=== PATIENT | female | born 1990 | race Caucasian/White ===

== ENCOUNTER 2017-01-11 19:34 | Emergency (ER) | payer OTHER ==
[~2017-01-11] VITALS: Ht 157.5 cm; Wt 66.1 kg
[2017-01-11 19:43] VITALS: BP 147/68; PULSE 95; RESP 18; TEMP 97.7; O2SAT 97
[2017-01-11] MEDS ORDERED: LORA-392 PO (20:00)
[2017-01-11] MEDS ORDERED: FLUO60TA PO (20:00)
[2017-01-11] MEDS ORDERED: birth control PO (20:00)
[2017-01-11] MEDS ORDERED: SODIUM CHLOR 0.9% 1000 ML INJ 1,000 ML IV SCH (20:10)
[2017-01-11] MEDS ORDERED: SODIUM CHLORIDE 0.9% FLUSH 10 ML FLUSH IV FLUSH PRN (20:15)
--- NOTE | 2017-01-11 20:15 | PD ---
HPI Chief Complaint: GI Complaint Time Seen by Provider: 20:10 Travel History International Travel<30 days: No Contact w/Intl Traveler<30days: No Traveled to known affect area: No History of Present Illness HPI 26-year-old female presents to the emergency department by private transportation for complaint of 3 days of nausea vomiting diarrhea and one day of abdominal pain generalized primarily epigastric and right flank. Patient denies fever chills. No recent respiratory illness symptoms no sinus pressure drainage sore throat earache cough congestion chest pain or shortness of breath. Patient denies dysuria frequency urgency or hematuria. Patient just completed her normal menses 2 days ago. Patient states that she does take control pills and her cycle is well regulated. Patient denies any dietary indiscretion well water ingestion or foreign travel. Patient is currently on a clinical and is exposed to patients at [facility] [place] [facility]. Patient says no known exposure to GI bug; reportedly no one else with similar symptoms. Emesis has been stomach contents no bilious emesis no coffee-ground emesis no hematemesis also no melanoma hematochezia. Pain at worst is 8/10 in intensity presently discomfort as 3/10 in intensity. Patient reports her discomfort as intermittent colicky nature. Patient denies any personal history family history of inflammatory bowel disease Crohn's ulcer colitis and has not had similar symptoms in the past. Patient denies . Patient is unable to identify exacerbating or alleviating factors. [facility] Past Medical History Narrative Medical Anxiety depression; no surgery; no tobacco use; nursing notes reviewed Anxiety: Yes Depression: Yes Immunizations Current: Yes (UTD per pt ) Tetanus Vaccination: Unknown Influenza Vaccination: Yes ?: Not LMP: 01/05/17 Past Surgical History Surgical History: No Previous Surgery Social History Alcohol Use: No Tobacco Use: No Substance Use: No Allergies-Medications (Allergen,Severity, Reaction): Coded Allergies: Penicillins (Verified Allergy, Severe, Swelling, 01/11/17) azithromycin (Verified Allergy, Severe, Swelling, 01/11/17) erythromycin base (Verified Allergy, Severe, Swelling, 01/11/17) Reported Meds & Prescriptions Reported Meds & Active Scripts Active Reported [ control ] PO DAILY Ativan (Lorazepam) 0.5 Mg Tab 0.25 Mg PO DAILY PRN Fluoxetine (Fluoxetine HCl) 60 Mg Tab 100 Mg PO DAILY Review of Systems Except as stated in HPI: all other systems reviewed are Neg General / Constitutional: No: Fever, Chills HENT: No: Congestion Cardiovascular: No: Chest Pain or Discomfort Respiratory: No: Shortness of Breath Gastrointestinal: Positive: Nausea, Vomiting, Diarrhea, Abdominal Pain Genitourinary: Positive: Flank Pain, No: Dysuria, Vaginal Bleeding Musculoskeletal: No: Myalgias, Arthralgias Skin: No Rash Neurologic: No: Weakness, Dizziness, Syncope Psychiatric: No: Anxiety Hematologic/Lymphatic: No: Lymph Node Enlargement Physical Exam Narrative GENERAL: Well-developed well-nourished female in no acute distress no respiratory distress SKIN: Warm and dry. HEAD: Normocephalic. EYES: No scleral icterus. No injection or drainage. NECK: Supple, trachea midline. No JVD or lymphadenopathy. CARDIOVASCULAR: Regular rate and rhythm without murmurs, gallops, or rubs. RESPIRATORY: Breath sounds equal bilaterally. No accessory muscle use. GASTROINTESTINAL: Abdomen soft, non-tender, nondistended. No guarding no rebound. MUSCULOSKELETAL: No cyanosis, or edema. BACK: Nontender without obvious deformity. No CVA tenderness. Data Data Last Documented VS Vital Signs Date Time Temp Pulse Resp B/P (MAP) Pulse Ox O2 Delivery O2 Flow Rate FiO2 01/11/17 19:43 97.7 95 18 147/68 (94) 97 Orders Orders Complete Blood Count With Diff (01/11/17 20:10) Comprehensive Metabolic Panel (01/11/17 20:10) Lipase (01/11/17 20:10) Urinalysis - C+S If Indicated (01/11/17 20:10) Iv Access Insert/Monitor (01/11/17 20:10) Ecg Monitoring (01/11/17 20:10) Oximetry (01/11/17 20:10) Sodium Chlor 0.9% 1000 Ml Inj (Ns 1000 M (01/11/17 20:10) Sodium Chloride 0.9% Flush (Ns Flush) (01/11/17 20:15) Ed Urine Pregnancytest Poc (01/11/17 20:10) Ct Abd/Pel W/O Iv Contrast (01/11/17 ) Ketorolac Inj (Toradol Inj) (01/11/17 21:00) Labs Laboratory Tests Test 01/11/17 20:28 White Blood Count 7.4 TH/MM3 Red Blood Count 4.64 MIL/MM3 Hemoglobin 13.9 GM/DL Hematocrit 41.1 % Mean Corpuscular Volume 88.7 FL Mean Corpuscular Hemoglobin 30.0 PG Mean Corpuscular Hemoglobin Concent 33.9 % Red Cell Distribution Width 11.7 % Platelet Count 246 TH/MM3 Mean Platelet Volume 8.9 FL Neutrophils (%) (Auto) 68.8 % Lymphocytes (%) (Auto) 21.2 % Monocytes (%) (Auto) 7.5 % Eosinophils (%) (Auto) 1.7 % Basophils (%) (Auto) 0.8 % Neutrophils # (Auto) 5.0 TH/MM3 Lymphocytes # (Auto) 1.6 TH/MM3 Monocytes # (Auto) 0.6 TH/MM3 Eosinophils # (Auto) 0.1 TH/MM3 Basophils # (Auto) 0.1 TH/MM3 CBC Comment DIFF FINAL Differential Comment Urine Color YELLOW Urine Turbidity CLEAR Urine pH 7.0 Urine Specific [place] 1.015 Urine Protein NEG mg/dL Urine Glucose (UA) NEG mg/dL Urine Ketones NEG mg/dL Urine Occult Blood SMALL Urine Nitrite NEG Urine Bilirubin NEG Urine Leukocyte Esterase NEG Urine RBC 0-3 /hpf Urine WBC 3-5 /hpf Urine Squamous Epithelial Cells 6-8 /hpf Urine Hyaline Casts INNUM /lpf Microscopic Urinalysis Comment CULT NOT INDICATED Blood Urea Nitrogen 8 MG/DL Creatinine 0.78 MG/DL Random Glucose 99 MG/DL Total Protein 7.6 GM/DL Albumin 3.8 GM/DL Calcium Level 9.6 MG/DL Alkaline Phosphatase 85 U/L Aspartate Amino Transf (AST/SGOT) 16 U/L Alanine Aminotransferase (ALT/SGPT) 28 U/L Total Bilirubin 0.3 MG/DL Sodium Level 141 MEQ/L Potassium Level 3.4 MEQ/L Chloride Level 104 MEQ/L Carbon Dioxide Level 27.2 MEQ/L Anion Gap 10 MEQ/L Estimat Glomerular Filtration Rate 90 ML/MIN Lipase 123 U/L MDM Medical Decision Making Medical Screen Exam Complete: Yes Emergency Medical Condition: Yes Medical Record Reviewed: Yes Interpretation(s) POC HCG: Negative Vital Signs Date Time Temp Pulse Resp B/P (MAP) Pulse Ox O2 Delivery O2 Flow Rate FiO2 01/11/17 19:43 97.7 95 18 147/68 (94) 97 CBC & BMP Diagram 01/11/17 20:28 Total Protein 7.6, Albumin 3.8, Calcium Level 9.6, Alkaline Phosphatase 85, Aspartate Amino Transf (AST/SGOT) 16, Alanine Aminotransferase (ALT/SGPT) 28, Total Bilirubin 0.3 UA: Small blood otherwise unremarkable; culture not indicated Differential Diagnosis Gastroenteritis, viral syndrome, gastritis, peptic ulcer disease, pancreatitis, biliary colic, , renal colic, dehydration, electrolyte disturbance, UTI Narrative Course IV access obtained specimens collected and sent for resulting; patient given bolus of normal saline. After IV fluids patient had no further nausea vomiting or diarrhea denies any abdominal pain at this time although overall discomfort rate is 2/10 intensity Discussed with patient normal lab values except for a scant amount of blood in the urine which may be residual from her recent menses or could be based on colicky nature of pain/flank pain related to renal colic; CT abdomen and pelvis kidney stone protocol discussed with patient and she declines imaging at this time. Patient is otherwise stable for outpatient management and follow-up with her primary care provider. Patient given prescription for Zofran to take as needed for nausea and/or vomiting. Patient is encouraged to increase fluid hydration follow clear liquid diet for next 12-24 hours. Patient encouraged to return the emergency room for any concerns or recurrence of symptoms. Diagnosis Primary Impression: Gastroenteritis Referrals: Primary Care Physician call for appointment Patient Instructions: General Instructions Additional Instructions: Follow clear liquid diet for next 12-24 hours advance diet as tolerated to bland /Lilia diet then regular diet Takes Zofran as prescribed as needed for nausea and/or vomiting Increase fluid hydration Basic acetaminophen/Tylenol as needed for minor pain or for fever 100.4F or greater May use ibuprofen/Advil/Motrin sparingly for fever 100.4F or greater or for pain associated with inflammation Return to the emergency department for any concerns or recurrent symptoms No work times one day Med/Other Pt SpecificInfo: Prescription(s) given Scripts Ondansetron Odt (Zofran Odt) 4 Mg Tab 4 MG SL Q6HR Y for Nausea/Vomiting, #7 TAB 0 Refills Prov: Monica Vargas MD 01/11/17 Disposition: 01 DISCHARGE HOME Condition: Stable Monica Vargas MD Jan 11, 2017 20:15
[2017-01-11 20:37] LABS: BLOOD, URINE SMALL (NEG); GLUCOSE,URINE NEG (NEG); KETONE, URINE NEG (NEG); NITRITE,URINE NEG (NEG)
[2017-01-11 20:38] LABS: BASOPHIL # 0.1 TH/MM3 (0-0.2); BASOPHIL % 0.8 % (0.0-2.0); EOSINOPHIL # 0.1 TH/MM3 (0-0.4); EOSINOPHIL % 1.7 % (0.0-4.0); HEMATOCRIT 41.1 % (35.0-46.0); HEMO FLAGS DIFF FINAL; LYMPH % 21.2 % (9.0-44.0); LYMPHOCYTE # 1.6 TH/MM3 (1.0-4.8); MEAN CELL VOLUME 88.7 FL (80.0-100.0); MEAN CORPUSCULAR HGB CONC 33.9 % (32.0-36.0); MONO % 7.5 % (0.0-8.0); NEUT % 68.8 % (16.0-70.0); PLATELET COUNT 246 TH/MM3 (150-450); RED BLOOD COUNT 4.64 MIL/MM3 (4.00-5.30); RED CELL DISTRIBUTION WIDTH 11.7 % (11.6-17.2); WHITE BLOOD COUNT 7.4 TH/MM3 (4.0-11.0)
[2017-01-11 20:43] LABS: COMMENT (UR) CULT NOT INDICATED; CULTURE IF INDICATED CULT NOT INDICATED; HYALINE CAST, URINE INNUM /lpf (RARE); RBC, URINE 0-3 /hpf (0-3); URINE COLOR YELLOW (YELLW/STRAW)
[2017-01-11 20:46] LABS: CHLORIDE 104 MEQ/L (98-107); POTASSIUM 3.4 MEQ/L (3.5-5.1); SODIUM (NA) 141 MEQ/L (136-145)
[2017-01-11 20:49] LABS: ANION GAP 10 MEQ/L (5-15); BICARBONATE 27.2 MEQ/L (21.0-32.0)
[2017-01-11 20:50] LABS: BLOOD UREA NITROGEN 8 MG/DL (7-18)
[2017-01-11 20:52] LABS: ALT (GPT) 28 U/L (10-53); AST (GOT) 16 U/L (15-37)
[2017-01-11 20:53] LABS: GLOMERULAR FILTRATION RATE 90 ML/MIN (>89)
[2017-01-11 20:54] LABS: TOTAL BILIRUBIN ADULT 0.3 MG/DL (0.2-1.0)
[2017-01-11 20:55] LABS: ALKALINE PHOSPHATASE 85 U/L (45-117)
[2017-01-11] MEDS ORDERED: KETOROLAC TROMETHAMINE 30 MG/ML (IVP) VIAL IV PUSH ONE (21:00)
[2017-01-11] MEDS ORDERED: ZOFR4TAB3 SL (21:08)
[2017-01-11 21:13] VITALS: RESP 16; O2SAT 99
[2017-01-11 21:47] VITALS: BP 121/74
== END 2017-01-11 21:49 | disposition home or self-care (01) ==
LOC: PHED 19:34
DX: K52.9 Noninfective gastroenteritis and colitis, unspecified (principal)
CPT/HCPCS: 80053; 81001; 83690; 84703; 85025; 96360; 99284; J7030